=== PATIENT | female | born 1970 | race Hispanic/Latino ===

== ENCOUNTER 2021-04-10 08:55 | Emergency (ER) | payer SELFPAY ==
[~2021-04-10] VITALS: Ht 162.6 cm; Wt 68.0 kg
[2021-04-10 08:56] VITALS: BP 145/85
[2021-04-10 09:27] LABS: BASOPHILS % (AUTO) 0.6 % (0.0-5.0); EOSINOPHILS % (AUTO) 1.2 % (0.0-8.0); HEMATOCRIT 42.2 % (36-48); LYMPHOCYTES % (AUTO) 28.4 % (21.0-51.0); MEAN CORPUSCULAR HEMOGLOBIN 31.4 pg (27.0-33.0); MEAN CORPUSCULAR HGB CONC 35.3 g/dL (32.0-36.0); MEAN CORPUSCULAR VOLUME 88.8 fL (79-99); MONOCYTES % (AUTO) 7.3 % (3.0-13.0); NEUTROPHILS % (AUTO) 62.3 % (40.0-77.0); PLATELET COUNT (AUTO) 351 K/uL (130-400); RED BLOOD CELL COUNT(AUTO) 4.75 MIL/uL (4.00-5.50); WHITE BLOOD COUNT (AUTO) 10.3 K/uL (4.8-10.8)
[2021-04-10 09:36] LABS: APPEARANCE,URINE Turbid (CLEAR); BILIRUBIN,URINE Negative (NEGATIVE); COLOR,URINE Yellow (YELLOW); GLUCOSE, URINE (UA) TRACE mg/dL (NEGATIVE); KETONES,URINE Trace mg/dL (NEGATIVE); LEUKOCYTE ESTERASE ,URINE Large (NEGATIVE); NITRATE,URINE Positive (NEGATIVE); OCCULT BLOOD,URINE Trace (NEGATIVE); PH,URINE 5.5 (5.0-8.0); PROTEIN,URINE 300 mg/dL (NEGATIVE)
[2021-04-10 09:41] LABS: INR 0.9 (0.85-1.15); PROTHROMBIN TIME 9.9 SEC (9.6-11.6)
[2021-04-10 09:42] LABS: PARTIAL THROMBOPLASTIN TIME 24.7 SEC (26.3-35.5)
[2021-04-10 09:43] LABS: RBC,URINE 0-1 /HPF (0-1); WBC,URINE >100 /HPF (0-1)
[2021-04-10 09:44] LABS: BACTERIA,URINE Many /HPF (None Seen); SQUAMOUS EPITHELIAL CELL,UR Few /HPF (0-2)
[2021-04-10 09:53] LABS: CREATININE 1.1 mg/dL (0.5-1.5)
[2021-04-10 09:54] LABS: B-TYPE NATRIURETIC PEPTIDE 45 pg/mL (0-100)
[2021-04-10 09:57] LABS: ALBUMIN 4.5 g/dL (3.5-5.0); BILIRUBIN,TOTAL 0.4 mg/dL (0.2-1.0); TOTAL PROTEIN, SERUM 8.9 g/dL (6.0-8.3)
[2021-04-10 10:59] VITALS: BP 135/78
[2021-04-10] MEDS: LEVOFLOXACIN 500 MG/D5W 100 ML 100 ML IV SCH (11:32)
[2021-04-10 12:21] VITALS: BP 138/72
[2021-04-10 13:50] VITALS: BP 119/76
[2021-04-10] MEDS ORDERED: PHEN-847 PO (13:52)
[2021-04-10] MEDS ORDERED: CIPR-278 PO (13:52)
[2021-04-10] MEDS ORDERED: NAPR-1180 PO (13:52)
[2021-04-10] MEDS: ACETAMINOPHEN 500 MG TABLET PO ONE (14:08)
[2021-04-10] MEDS: KETOROLAC 30MG VIAL (30MG/ML) IV ONE (14:08)
== END 2021-04-10 14:15 | disposition home or self-care (01) ==
LOC: EDH 08:55
DX: N39.0 Urinary tract infection, site not specified (principal); E11.9 Type 2 diabetes mellitus without complications; Z88.2 Allergy status to sulfonamides; Z88.0 Allergy status to penicillin; Z90.710 Acquired absence of both cervix and uterus; Z85.3 Personal history of malignant neoplasm of breast
CPT/HCPCS: 36415; 71045; 74176; 80053; 81001; 82150; 83690; 83880; 85025; 85610; 85730; 87077; 87088; 87186; 93005; 96365; 96366; 96375; 99285; J1885; J1956

== ENCOUNTER 2021-07-04 21:03 | Emergency (ER) | payer OTHER ==
[~2021-07-04] VITALS: Ht 162.6 cm; Wt 68.0 kg
[~2021-07-04 21:03] MED LIST: CIPR-278 PO; NAPR-1180 PO; PHEN-847 PO
[2021-07-04 21:57] LABS: BASOPHILS % (AUTO) 0.7 % (0.0-5.0); EOSINOPHILS % (AUTO) 2.6 % (0.0-8.0); HEMATOCRIT 39.7 % (36-48); LYMPHOCYTES % (AUTO) 28.9 % (21.0-51.0); MEAN CORPUSCULAR HEMOGLOBIN 32.2 pg (27.0-33.0); MEAN CORPUSCULAR VOLUME 94.7 fL (79-99); MONOCYTES % (AUTO) 7.7 % (3.0-13.0); PLATELET COUNT (AUTO) 241 K/uL (130-400); RED BLOOD CELL COUNT(AUTO) 4.19 MIL/uL (4.00-5.50); RED CELL DISTRIBUTION WIDTH 12.2 % (11.0-15.5); WHITE BLOOD COUNT (AUTO) 7.4 K/uL (4.8-10.8)
[2021-07-04 22:00] LABS: APPEARANCE,URINE Clear (CLEAR); BILIRUBIN,URINE Negative (NEGATIVE); COLOR,URINE Yellow (YELLOW); GLUCOSE, URINE (UA) >=1000 mg/dL (NEGATIVE); KETONES,URINE Negative (NEGATIVE); LEUKOCYTE ESTERASE ,URINE Small (NEGATIVE); NITRATE,URINE Positive (NEGATIVE); OCCULT BLOOD,URINE Trace (NEGATIVE); PROTEIN,URINE POS 2+ mg/dL (NEGATIVE); UROBILINOGEN,URINE 0.2 mg/dL (0.2-1.0)
[2021-07-04] MEDS ORDERED: KETOROLAC 30MG VIAL (30MG/ML) IV ONE (22:00)
[2021-07-04] MEDS ORDERED: 0.9%NACL 1000ML 1,000 ML IV ONE (22:00)
[2021-07-04 22:08] LABS: POTASSIUM 5.1 mmol/L (3.5-5.1)
[2021-07-04 22:13] LABS: BACTERIA,URINE Moderate /HPF (None Seen)
[2021-07-04 22:14] LABS: SQUAMOUS EPITHELIAL CELL,UR Few /HPF (0-2)
[2021-07-04 22:15] LABS: ALBUMIN 3.6 g/dL (3.5-5.0); BILIRUBIN,TOTAL 0.3 mg/dL (0.2-1.0); TOTAL PROTEIN, SERUM 7.8 g/dL (6.0-8.3)
[2021-07-04] MEDS ORDERED: MELO7.5T12 PO (22:44)
[2021-07-04] MEDS ORDERED: CEPH500B PO (22:44)
[2021-07-04] MEDS ORDERED: DICY20TA2 PO (22:44)
[2021-07-04] MEDS ORDERED: PHARMACY COMMUNICATION MISC SCH (23:00)
[2021-07-04] MEDS ORDERED: CEFTRIAXONE 2GM VIAL IVP ONE (23:00)
[2021-07-04] MEDS ORDERED: 0.9%NACL 50ML 50 ML IV ONE (23:21)
[2021-07-05 00:10] VITALS: BP 132/78
== END 2021-07-05 00:10 | disposition home or self-care (01) ==
LOC: EDH 21:03
DX: N39.0 Urinary tract infection, site not specified (principal); N12 Tubulo-interstitial nephritis, not specified as acute or chronic; E86.9 Volume depletion, unspecified; E10.9 Type 1 diabetes mellitus without complications; Z88.0 Allergy status to penicillin; Z88.2 Allergy status to sulfonamides; Z85.3 Personal history of malignant neoplasm of breast; Z79.1 Long term (current) use of non-steroidal anti-inflammatories (NSAID)
CPT/HCPCS: 36415; 74176; 80053; 81001; 83690; 85025; 87077; 87088; 87186; 96361; 96374; 96375; 99284; J0696; J1885

== ENCOUNTER 2021-12-02 21:14 | Emergency (ER) | payer BC, OTHER ==
[~2021-12-02] VITALS: Ht 162.6 cm; Wt 78.0 kg
[~2021-12-02 21:14] MED LIST changes: +CEPH500B PO; +DICY20TA2 PO; +MELO7.5T12 PO
[2021-12-02] MEDS ORDERED: 0.9%NACL 1000ML 1,000 ML IV ONE (21:30)
[2021-12-02 21:43] LABS: BASOPHILS % (AUTO) 0.4 % (0.0-5.0); HEMATOCRIT 38.4 % (36-48); LYMPHOCYTES % (AUTO) 13.1 % (21.0-51.0); MEAN CORPUSCULAR HEMOGLOBIN 31.2 pg (27.0-33.0); MEAN CORPUSCULAR HGB CONC 33.6 g/dL (32.0-36.0); MONOCYTES % (AUTO) 9.6 % (3.0-13.0); NEUTROPHILS % (AUTO) 76.5 % (40.0-77.0); PLATELET COUNT (AUTO) 242 K/uL (130-400); RED BLOOD CELL COUNT(AUTO) 4.13 MIL/uL (4.00-5.50); RED CELL DISTRIBUTION WIDTH 13.2 % (11.0-15.5); WHITE BLOOD COUNT (AUTO) 8.1 K/uL (4.8-10.8)
[2021-12-02] MEDS ORDERED: IOHEXOL-350 75 ML VIAL IV ONE (21:43)
[2021-12-02 21:57] LABS: CREATININE 1.1 mg/dL (0.5-1.5); POTASSIUM 3.5 mmol/L (3.5-5.1)
[2021-12-02 21:57] LABS: APPEARANCE,URINE Clear (CLEAR); BILIRUBIN,URINE Negative (NEGATIVE); COLOR,URINE Yellow (YELLOW); GLUCOSE, URINE (UA) >=1000 mg/dL (NEGATIVE); KETONES,URINE Negative (NEGATIVE); LEUKOCYTE ESTERASE ,URINE Small (NEGATIVE); NITRATE,URINE Negative (NEGATIVE); OCCULT BLOOD,URINE Nonhemolyzed Trace (NEGATIVE); PH,URINE 6.5 (5.0-8.0); PROTEIN,URINE POS 2+ mg/dL (NEGATIVE)
[2021-12-02] MEDS ORDERED: DiphenhydrAMINE HCL 50 MG/ML VIAL IV ONE (22:00)
[2021-12-02] MEDS ORDERED: METOCLOPRAMIDE 10 MG/2 ML VIAL IVP ONE (22:00)
[2021-12-02 22:05] LABS: BACTERIA,URINE Moderate /HPF (None Seen); MUCUS,URINE Few LPF (None Seen); SQUAMOUS EPITHELIAL CELL,UR Moderate /HPF (0-2)
[2021-12-02 22:08] LABS: ALBUMIN 3.3 g/dL (3.5-5.0); BILIRUBIN,TOTAL 0.3 mg/dL (0.2-1.0); TOTAL PROTEIN, SERUM 8.1 g/dL (6.0-8.3)
[2021-12-02] MEDS ORDERED: CEFTRIAXONE 1G VIAL IV ONE (22:30)
[2021-12-02 22:43] VITALS: BP 138/72
[2021-12-03] MEDS ORDERED: ACET-66 PO
[2021-12-03] MEDS ORDERED: KETOROLAC 15MG/ML VIAL (15MG/ML) IV ONE
[2021-12-03] MEDS ORDERED: CEPH500B PO
== END 2021-12-03 00:39 | disposition home or self-care (01) ==
LOC: EDH 21:14
DX: N12 Tubulo-interstitial nephritis, not specified as acute or chronic (principal); Z20.822 Contact with and (suspected) exposure to COVID-19; E11.9 Type 2 diabetes mellitus without complications; E78.00 Pure hypercholesterolemia, unspecified; Z98.890 Other specified postprocedural states; Z88.2 Allergy status to sulfonamides; Z88.0 Allergy status to penicillin; Z79.899 Other long term (current) drug therapy
CPT/HCPCS: 36415; 71045; 74177; 80053; 81001; 83605; 84702; 85025; 87040 ×2; 87077; 87088; 87186; 87635; 87804 ×2; 87880; 96361; 96374; 96375 ×2; 99284; C9803; J0696; J1200; J1885; J2765; J7030; Q9967

== ENCOUNTER 2022-04-10 15:29 | Emergency (ER) | payer BC ==
[~2022-04-10] VITALS: Ht 162.6 cm; Wt 79.8 kg
[~2022-04-10 15:29] MED LIST changes: +ACET-66 PO
[2022-04-10 15:30] VITALS: BP 147/79
[2022-04-10 16:13] LABS: BASOPHILS % (AUTO) 0.6 % (0.0-5.0); EOSINOPHILS % (AUTO) 0.8 % (0.0-8.0); HEMATOCRIT 39.9 % (36-48); LYMPHOCYTES % (AUTO) 32.8 % (21.0-51.0); MEAN CORPUSCULAR HEMOGLOBIN 31.4 pg (27.0-33.0); MEAN CORPUSCULAR HGB CONC 34.3 g/dL (32.0-36.0); MEAN CORPUSCULAR VOLUME 91.5 fL (79-99); MONOCYTES % (AUTO) 6.6 % (3.0-13.0); PLATELET COUNT (AUTO) 280 K/uL (130-400); RED BLOOD CELL COUNT(AUTO) 4.36 MIL/uL (4.00-5.50)
[2022-04-10 16:21] LABS: CREATININE 1.2 mg/dL (0.5-1.5)
[2022-04-10 16:25] LABS: APPEARANCE,URINE CLOUDY (CLEAR); BILIRUBIN,URINE NEGATIVE (NEGATIVE); COLOR,URINE YELLOW (YELLOW); GLUCOSE, URINE (UA) >=1000 mg/dL (NEGATIVE); KETONES,URINE NEGATIVE (NEGATIVE); LEUKOCYTE ESTERASE ,URINE SMALL (NEGATIVE); NITRATE,URINE NEGATIVE (NEGATIVE); OCCULT BLOOD,URINE TRACE-INTACT (NEGATIVE); PROTEIN,URINE 100 mg/dL (NEGATIVE); UROBILINOGEN,URINE 0.2 mg/dL (0.2-1.0)
[2022-04-10 16:26] LABS: ALBUMIN 3.7 g/dL (3.5-5.0); TOTAL PROTEIN, SERUM 8.2 g/dL (6.0-8.3)
[2022-04-10 16:32] LABS: BACTERIA,URINE Moderate /HPF (None Seen)
[2022-04-10 16:33] LABS: SQUAMOUS EPITHELIAL CELL,UR Few /HPF (0-2); TRANSITIONAL EPI CELLS,URINE Rare /HPF (None Seen); WBC,URINE 26-50 /HPF (0-1)
[2022-04-10] MEDS ORDERED: 0.9%NACL 1000ML 1,000 ML IV ONE (17:30)
[2022-04-10] MEDS ORDERED: LEVOFLOXACIN 500 MG/D5W 100 ML 100 ML IV SCH (17:30)
[2022-04-10] MEDS ORDERED: CIPR-278 PO (18:39)
== END 2022-04-10 19:03 | disposition home or self-care (01) ==
LOC: EDH 15:29
DX: N39.0 Urinary tract infection, site not specified (principal); R42 Dizziness and giddiness; E11.9 Type 2 diabetes mellitus without complications; E78.00 Pure hypercholesterolemia, unspecified; Z79.1 Long term (current) use of non-steroidal anti-inflammatories (NSAID); Z85.3 Personal history of malignant neoplasm of breast; Z88.0 Allergy status to penicillin; Z88.2 Allergy status to sulfonamides
CPT/HCPCS: 99284; 96365; 82550; 84484; 80053; 85025; 87077; 87088; 87186; 82948; 81001; 36415; 93005; J1956; J7030

== ENCOUNTER 2022-07-07 15:32 | Emergency (ER) | payer BC ==
[~2022-07-07] VITALS: Ht 162.6 cm; Wt 83.9 kg
[2022-07-07 15:44] VITALS: BP 123/73
[2022-07-07] MEDS ORDERED: KETOROLAC 30MG VIAL (30MG/ML) IVP ONE (16:00)
[2022-07-07] MEDS ORDERED: ONDANSETRON 4MG INJ IVP ONE (16:00)
[2022-07-07 16:29] LABS: BASOPHILS % (AUTO) 0.4 % (0.0-5.0); EOSINOPHILS % (AUTO) 0.7 % (0.0-8.0); HEMATOCRIT 40.1 % (36-48); MEAN CORPUSCULAR HEMOGLOBIN 30.7 pg (27.0-33.0); MEAN CORPUSCULAR HGB CONC 33.9 g/dL (32.0-36.0); MEAN CORPUSCULAR VOLUME 90.5 fL (79-99); MONOCYTES % (AUTO) 7.1 % (3.0-13.0); NEUTROPHILS % (AUTO) 57.7 % (40.0-77.0); PLATELET COUNT (AUTO) 263 K/uL (130-400); RED BLOOD CELL COUNT(AUTO) 4.43 MIL/uL (4.00-5.50); RED CELL DISTRIBUTION WIDTH 11.9 % (11.0-15.5); WHITE BLOOD COUNT (AUTO) 8.5 K/uL (4.8-10.8)
[2022-07-07 16:38] LABS: CREATININE 1.3 mg/dL (0.5-1.5)
[2022-07-07 16:47] LABS: ALBUMIN 3.9 g/dL (3.5-5.0); TOTAL PROTEIN, SERUM 8.3 g/dL (6.0-8.3)
[2022-07-07 17:21] LABS: APPEARANCE,URINE CLEAR (CLEAR); BILIRUBIN,URINE NEGATIVE (NEGATIVE); COLOR,URINE COLORLESS (YELLOW); GLUCOSE, URINE (UA) >=1000 mg/dL (NEGATIVE); KETONES,URINE NEGATIVE (NEGATIVE); LEUKOCYTE ESTERASE ,URINE NEGATIVE Leu/uL (NEGATIVE); NITRATE,URINE NEGATIVE (NEGATIVE); OCCULT BLOOD,URINE NEGATIVE (NEGATIVE); PROTEIN,URINE 20 mg/dL (NEGATIVE); UROBILINOGEN,URINE 0.2 mg/dL (0.2-1.0)
[2022-07-07 17:33] LABS: SQUAMOUS EPITHELIAL CELL,UR RARE /HPF (0-2)
[2022-07-07] MEDS ORDERED: DICY20TA2 PO (18:07)
== END 2022-07-07 18:16 | disposition home or self-care (01) ==
LOC: EDH 15:32
DX: R10.9 Unspecified abdominal pain (principal); E66.9 Obesity, unspecified; K57.10 Diverticulosis of small intestine without perforation or abscess without bleeding; Z68.31 Body mass index [BMI] 31.0-31.9, adult; E11.9 Type 2 diabetes mellitus without complications; I10 Essential (primary) hypertension; Z88.0 Allergy status to penicillin; Z88.2 Allergy status to sulfonamides; E78.00 Pure hypercholesterolemia, unspecified; Z79.899 Other long term (current) drug therapy
CPT/HCPCS: 99284; 74176; 96374; 96375; 84484; 80053; 83690; 85025; 81001; 36415; J2405; J1885

== ENCOUNTER 2022-11-21 23:12 | Emergency (ER) | payer BC ==
[~2022-11-21] VITALS: Ht 162.6 cm; Wt 83.9 kg
[2022-11-22] MEDS ORDERED: KETOROLAC 30MG VIAL (30MG/ML) IVP ONE (01:00)
[2022-11-22] MEDS ORDERED: DiphenhydrAMINE HCL 50 MG/ML VIAL IV ONE (01:00)
[2022-11-22] MEDS ORDERED: METOCLOPRAMIDE 10 MG/2 ML VIAL IVP ONE (01:00)
[2022-11-22] MEDS ORDERED: DiphenhydrAMINE HCL 50 MG/ML VIAL ONE (01:01)
[2022-11-22] MEDS ORDERED: METOCLOPRAMIDE 10 MG/2 ML VIAL ONE (01:01)
[2022-11-22] MEDS ORDERED: KETOROLAC 30MG VIAL (30MG/ML) ONE (01:01)
[2022-11-22] MEDS ORDERED: IBUP-2088 PO (01:52)
[2022-11-22 02:58] VITALS: BP 142/80
== END 2022-11-22 03:03 | disposition home or self-care (01) ==
LOC: EDH 23:12
DX: G43.909 Migraine, unspecified, not intractable, without status migrainosus (principal); I10 Essential (primary) hypertension; E11.9 Type 2 diabetes mellitus without complications; E78.00 Pure hypercholesterolemia, unspecified; E66.9 Obesity, unspecified; Z85.3 Personal history of malignant neoplasm of breast; Z98.890 Other specified postprocedural states; Z88.0 Allergy status to penicillin; Z88.2 Allergy status to sulfonamides
CPT/HCPCS: 99284; 96374; 96375; J1200; J1885; J2765